=== PATIENT | male | born 1965 | race Caucasian/White ===

== ENCOUNTER → 2020-12-21 07:00 | Outpatient (CLI) | payer OTHER, SELFPAY ==
[2020-12-21 19:08] LABS: SARS-CoV-2 RNA PCR Negative
== END ==
PROVIDERS: PCP Family Medicine; Visit Provider Family Medicine
DX: Z20.822 Contact with and (suspected) exposure to COVID-19 (principal); J02.9 Acute pharyngitis, unspecified
CPT/HCPCS: C9803; U0003; U0005

== ENCOUNTER 2023-07-19 12:05 | Outpatient (CLI) | payer OTHER, SELFPAY ==
--- NOTE | ~2023-07-19 | XR_ITS ---
Clinical Indication: Acute bronchitis PA and lateral views of the chest: Comparison: None Findings: The lungs are clear, without evidence of focal consolidation or pleural effusion. Cardiome diastinal silhouette is within normal limits. Moderate hiatal hernia noted. Minimal wedging deformity of T8 noted. Impression: Clear lungs. Moderate hiatal hernia. Minimal anterior wedging deformity of T8. Reviewed, dictated and finalized at location . Impression: Clear lungs. Moderate hiatal hernia. Minimal anterior wedging deformity of T8.
== END 2023-07-19 12:06 | disposition home or self-care (01) ==
LOC: ANHIMG 12:25
PROVIDERS: PCP Family Medicine; Visit Provider Family Medicine
DX: J20.9 Acute bronchitis, unspecified (principal); K44.9 Diaphragmatic hernia without obstruction or gangrene
CPT/HCPCS: 71046

== ENCOUNTER → 2024-10-30 11:01 | Outpatient (CLI) | payer OTHER, SELFPAY ==
--- NOTE | ~2024-10-30 | XR_ITS ---
EXAM: XR lumbar spine min 4V DATE: 10/30/2024 11:15 HISTORY: left sciatica . COMPARISON: CT abdomen pelvis 08/03/2014. FINDINGS: 5 nonrib-bearing lumbar-type vertebral bodies. Pedicles intact. Normal vertebral body alig nment. Vertebral body heights preserved. Mild disc space narrowing at L4-5 and L5-S1. Normal facets a nd posterior elements. No pars defects. No fracture or dislocation. Subjectively decreased mineraliza tion. Concave endplate deformities at multiple lumbar levels. Pelvic phleboliths. IMPRESSION: Osteopenia. Multilevel concave endplate deformities as can be seen with osteoporosis, con associate engineer bone density scanning. Mild degenerative disc disease at L4-5 and L5-S1. Reviewed, dictated and finalized at location K. [employer]ICATION IMPRESSION: Osteopenia. Multilevel concave endplate deformities as can be seen with osteoporosis, consider bone density scanning. Mild degenerative disc disea se at L4-5 and L5-S1.
== END ==
PROVIDERS: PCP Family Medicine; Visit Provider Family Medicine
DX: M54.42 Lumbago with sciatica, left side (principal); M85.88 Other specified disorders of bone density and structure, other site
CPT/HCPCS: 72110

== ENCOUNTER 2025-07-02 14:43 | Outpatient (CLI) | payer OTHER, SELFPAY ==
--- NOTE | ~2025-07-02 | DEXA_ITS ---
Bone Density Report Name: DENG SILVA Age: 59 Sex: Male Ethnicity: White Date of : 1965 Indication: Referring Provider: MARLENY KAUFFMAN Study: Bone densitometry was performed. Exam Date: July 02, 2025 Accession number: [id number] Bone Density: Region BMD T-score Z-score Classification AP Spine(L1-L4) 0.812 -2.5 -1.9 Osteoporosis Femoral Neck (Left) 0.589 -2.5 -1.5 Osteoporosis Total Hip (Left) 0.805 -1.5 -1.0 Osteopenia Femoral Neck (Right) 0.577 -2.6 -1.6 Osteoporosis Total Hip (Right) 0.784 -1.6 -1.2 Osteopenia Total Hip Mean 0.794 -1.6 -1.1 Osteopenia World Health Organization criteria for BMD impression classify patients as: Normal (T-score at or above -1.0), Osteopenia (T-score between -1.0 and -2.5), or Osteoporosis (T-score at or below -2.5). 10-year Fracture Risk: FRAX not reported because: Some T-score for Spine Total or Hip Total or Femoral Neck at or below -2.5 Clinical Information Provided by Patient: Patient maximum height was 68 Drinks caffeinated beverages Impression: The patient has osteoporosis, based on the Right Femoral Neck T-score. Discussion: INCREASED RISK OF FRACTURE. BONE DENSITY IS UNDESIRABLY LOW AT ONE OR MORE SKELETAL SITES, CONSISTENT WITH OSTEOPOROSIS. This patient's lowest T-score meets the World Health Organization's (WHO) criteria for osteoporosis at one or more sites (T-score -2.5 or below). In untreated patients, the risk of osteoporotic fracture increases approximately two-fold for each 1.0 SD decrease in T-score. Low bone density is not the only risk factor for fracture; also consider factors such as patient's age, frailty or poor health, risk of falling, risk of injury, previous osteoporotic fracture, family history of osteoporosis, cigarette smoking, low body weight, etc. Not everyone with low bone mineral density has osteoporosis; osteomalacia and other metabolic bone disorders should also be considered. Patients who have osteoporosis should be evaluated for specific diseases and conditions (secondary causes) that may cause or contribute to bone loss. The National Osteoporosis Foundation (NOF) recommends pharmacologic intervention for men with BMD at this level (a T-score of -2.5 or below). The patient should follow a healthful lifestyle (good nutrition with adequate calcium and vitamin D, and appropriate weight-bearing exercise). Follow-Up: Consider repeating this study in 2 years to reassess this patient's status, or sooner if there is some new clinical indication. Reported by: SUSANA on 07/02/2025 3:20:00 PM. Reviewed, dictated and finalized at location A.
--- OUTSIDE RECORDS SUMMARY | 2025-07-02 16:24 | XMS_ITS | Clinical Summary ---
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 Gender Identity Not on file Sexual Orientation Not on file Plan of Treatment Health Maintenance Due Date Last Done Comments Hepatitis C Virus (HCV) Screening 1965 TdaP Immunization 1965 Cologuard 2008 Colonoscopy 2008 Colorectal Cancer Screening 2008 Immunochemical Fecal Occult Blood 2008 Pneumococcal Immunization (5 0+ years) (1 of 1 - PCV) 2013 Zoster Immunization (1 of 2) 2013 SARS-COV-2 Immunization ( - season) 2024 02/21/2021, 01/26/2021 Influenza Immunization (#1) 2025 08/05/2019 Respiratory Syncytial Virus (RSV) Immunization (Adult) (1 - 1-dose 75+ series) 2038 Hepatitis B Immunization Aged Out No longer eligible based on patient's age to complete this topic Human Papillomavirus (HPV) Immunization Aged Out No longer eligible b ased on patient's age to complete this topic Meningococcal Immunization (ACWY) Aged Out No longer eligible b ased on patient's age to complete this topic Rotavirus Immunization Aged Out No lo nger eligible based on patient's age to complete this topic
== END 2025-07-02 14:44 | disposition home or self-care (01) ==
LOC: ANHFOHIMG 14:45
PROVIDERS: PCP Family Medicine; Visit Provider Family Medicine
DX: M81.0 Age-related osteoporosis without current pathological fracture (principal); M85.89 Other specified disorders of bone density and structure, multiple sites; M54.50 Low back pain, unspecified
CPT/HCPCS: 77080